=== PATIENT | male | born 2005 | race Caucasian/White ===

== ENCOUNTER 2025-07-23 21:49 | Emergency (ER) | payer BC, SELFPAY ==
[2025-07-23 21:51] VITALS: BP 128/74
--- NOTE | 2025-07-23 23:29 | ED.GENMED ---
History of Present Illness
General
Chief Complaint: Musculo-Skeletal Complaint
Source: patient
Exam Limitations: none
Time Seen by Provider: 07/23/25 23:06
Nursing documentation reviewed up to this point in time: agreed with
History of Present Illness
History of Present Illness:
Note:
CHIEF COMPLAINT(S)
Acute left ankle and foot pain following a jump.
HISTORY OF PRESENT ILLNESS
The patient is a 19-year-old male with no pmh who presents with acute left ankle and foot pain after landing awkwardly during a basketball game. The incident occurred at 9:00 PM today, approximately three hours prior to evaluation. The patient
reports that upon landing, he felt a sharp pain that originated in the ankle region and radiated upwards, involving the Achilles tendon and extending towards the calf. He describes the pain as a striking sensation. The patient is unable to bear
weight on the foot due to discomfort but notes that it feels manageable when not moved and minimal pain. Additionally, there is intermittent numbness and tingling involving the top of the foot. He denies any other injuries. He follows with [facility]. He did not hit his head or fall when he landed.
SOCIAL HISTORY
The patient does not mention any current use of substances like smoking or alcohol. He participates in recreational basketball.
MEDICATIONS
The patient mentions a sensitivity to medications that is not specified. Prefers not to take analgesics currently and will wait post-x-ray for further pain management.
Ibuprofen given in the emergency department did improve his pain.
PHYSICAL EXAM
General: Alert, no acute distress.
Skin: Warm and dry.
Head: Normocephalic, atraumatic.
Neck: Supple, trachea midline.
Eye Ears, nose, mouth, and throat: Oral mucosa moist.
Cardiovascular: Normal peripheral perfusion, No edema.
Respiratory: Respirations are non-labored.
Gastrointestinal: Abdomen nondistended.
Back: Normal range of motion, Normal alignment.
Musculoskeletal: Tenderness over the left calf and left Achilles, pain with varus/valgus stress of the left ankle, no swelling about the Achilles, no ligament laxity ankle joint stable. Negative Crabtree test, no asymmetric lower extremity swelling.
Neurological: Alert and oriented to person, place, time, and situation, No focal neurological deficit observed.
Psychiatric: Cooperative, appropriate mood & affect.
PROBLEM LIST
Acute Problems:
1. Left ankle and Achilles tendon pain post-trauma
2. Potential minor Achilles tendon tendonitis
PLAN
1. Obtain an x-ray to assess for acute fracture
2. Consider placing the patient in a walking boot to immobilize and protect the tendon/ankle post-imaging.
3. Refer to orthopedics
DIFFERENTIAL DIAGNOSIS
The Differential Diagnosis includes, in no particular order and is not limited to:
1. Achilles tendon tear
2. Ankle sprain or strain
3. Ankle fracture
4. Achilles tendonitis
5. Peroneal tendon injury
6. Posterior tibial tendon dysfunction
7. Lateral collateral ligament injury
8. Osteochondral injury
9. Tarsal tunnel syndrome
10. Muscle contusion
CHART REVIEW
No prior ER physician documentation to review, no discharge summaries to review
MDM/DISPOSITION
The patient is a 19-year-old male with no pmh who presents with acute left ankle and foot pain after landing awkwardly during a basketball game. He has trouble bearing weight due to the pain. On exam, he has tenderness on the calf but no Achilles
swelling, negative Crabtree test, does have pain with varus and valgus stress of the left ankle but the joint is stable. X-rays unremarkable showing no acute fracture or dislocation. Patient was put in a long-leg boot with partial weightbearing
status and he was given crutches. Suspect partial Achilles tear versus Achilles tendinopathy. Contacted [facility] orthopedist on-call to make aware of case to help facilitate outpatient follow-up. Like patient to be seen in the next week or 2
in the office. Patient stable for discharge.
Phy Exam
Physical Exam
Physical Exam:
see hpi
Course
Orders/Labs/Results
Orders:
Orders
07/23/25 23:25
Ankle, left 3 view CR [CR Ankle - Left Min 3 Views ] Urgent
Comment:
Reason For Exam: pain/swelling/injury
07/23/25 23:29
Ibuprofen [Motrin] 600 mg .ROUTE .STK-MED ONE
07/23/25 23:31
Ibuprofen [Motrin] 600 mg PO NOW STA
07/24/25 00:42
Crutches-Treatment ONCE
Ortho Boot Left- Treatment ONCE
Short or tall?: Tall
Vital Signs
Initial and Last Documented VS:
Initial Vital Signs
Temp Pulse Resp BP Pulse Ox
98 F 80 16 128/74 98
07/23/25 21:51 07/23/25 21:51 07/23/25 21:51 07/23/25 21:51 07/23/25 21:51
Last Documented Vital Signs
Temp Pulse Resp BP Pulse Ox
98 F 80 16 128/74 98
07/23/25 21:51 07/23/25 21:51 07/23/25 21:51 07/23/25 21:51 07/23/25 23:29
*Pulse Oximetry
SaO2: 98
Oxygen Mode of Delivery: Room air
Patient hypoxic: no
*Critical Care Note
Total Time (30-74mins, 75-104mins- exclusive of procedures): Not Applicable
ED Attending Note
-
Portions of this chart may have been created with voice recognition software.� Occasional wrong word or��sound alike� substitutions may have occurred due to the inherent limitations of voice recognition software.
Discharge Plan
Departure
Patient Disposition: Home (Routine Discharge)
Date of Disposition: 07/24/25
Time of Disposition: 01:10
Patient with high blood pressure during this ER visit?: No
Condition: Good
Discharge Problem:
Achilles tendinitis
Instructions: Achilles Tendinopathy (DC), How to Use Crutches, BLOOD PRESSURE
Referrals:
NONE,* [Family Provider, Internal Medicine]
Carmelo Briceno MD [Active, Orthopedics] - Call in 1-3 days for appt
Activity Restrictions/Additional Instructions:
Please follow up with [facility], a message was sent to the office.
Please take ibuprofen as needed for pain.
PLEASE RETURN TO THE ER SHOULD YOU DEVELOP LOSS OF SENSATION IN LOWER EXTREMITY, PALLOR, INCREASING PAIN, SWELLING, FEVERS, NAUSEA OR VOMITING, OR ANY OTHER SIGNS OR SYMPTOMS WORRISOME TO YOU.
Interventions
Interventions:
*Risk Screen - Suicide Last Done: 07/23/25 21:51
*General Assessment Last Done: 07/23/25 22:34
*Neglect/Abuse Screening Last Done: 07/23/25 21:51
*ED- Fall Risk Assessment Last Done: 07/23/25 22:34
*ED COVID-19 Vaccine History Last Done: 07/23/25 22:34
*ED Influenza Vaccine History Last Done: 07/23/25 22:34
*Nursing Disposition Last Done: 07/24/25 01:18
ED-Musculoskeletal Assessment Last Done: 07/23/25 22:34
Discharge Date and Time
Discharge Date/Time: 07/24/25 01:19
Print Language: CITIZEN OF [place]
[2025-07-23] MEDS: MOTRIN 600 MG PO (23:32)
== END 2025-07-24 01:19 | disposition home or self-care (01) ==
LOC: EMR 21:49
PROVIDERS: EMERGENCY PHYSICIAN Emergency Medicine
DX: M76.62 Achilles tendinitis, left leg (principal)
CPT/HCPCS: 99283; 73610